=== PATIENT | female | born 1975 ===

== ENCOUNTER 2022-04-16 10:09 | Outpatient (REF) | payer MEDICARE, MEDICAID, SELFPAY ==
[2022-04-16 11:42] LABS: MANUAL DIFF FLAG NO
[2022-04-16 12:01] LABS: Basophils Percent Auto 0.5 % (0-2); Eosinophils Absolute Auto 0.2 X10*3/uL (0.0-0.4); Eosinophils Percent Auto 2.4 % (0-4); Hematocrit 37.6 % (37.0-47.0); Hemoglobin 12.8 g/dl (12.0-16.0); Imm Gran Abs Auto 0.02 X10*3/uL (0.00-0.03); Imm Gran Pct Auto 0.2 % (0.0-0.4); Lymphocytes Absolute Auto 2.7 X10*3/uL (1.2-4.9); Lymphocytes Percent Auto 32.9 % (20-40); Mean Corpuscular Hemoglobin 29.8 pg (27.0-33.0); Mean Corpuscular Volume 87.4 fL (80.0-98.0); Mean Platelet Volume 9.2 fL (9.4-12.3); Monocytes Absolute Auto 0.6 X10*3/uL (0.1-1.2); Monocytes Percent Auto 6.7 % (2-11); Neutrophils Absolute Auto 4.7 x10*3/uL (2.0-8.3); Neutrophils Percent Auto 57.3 % (45-73); Platelet Count 328 X10*3/uL (160-400); Red Cell Distribution Width 13.1 % (11.0-16.0); White Blood Count 8.3 X10*3/uL (4.8-10.8)
[2022-04-16 12:16] LABS: D Dimer High Sensitivity < 150 NG/ML
[2022-04-16 12:34] LABS: Anion Gap 14 (12-20); Blood Urea Nitrogen 10 mg/dL (9-16); Calcium 9.5 mg/dL (8.4-10.2); Carbon Dioxide 22 mmol/L (22-29); Chloride 106 mmol/L (96-108); Estimated Glomerular Filt Rate > 60; Glucose Random 99 mg/dL (60-115); Potassium 4.1 mmol/L (3.3-5.1); Sodium 138 mmol/L (135-145)
[2022-04-16 12:36] LABS: Erythrocyte Sedimentation Rate 25 MM/HR (0-20)
[2022-04-18 06:26] LABS: Immunoglobulin E 63 kU/L (<OR=114)
[2022-04-18 17:17] LABS: Cyclic Citrullinated Peptide <16 UNITS
[2022-04-19 08:37] LABS: Anti Nuclear Antibody Screen NEGATIVE (NEGATIVE)
== END 2022-04-16 10:10 | disposition home or self-care (01) ==
LOC: HO.LAB 10:09
PROVIDERS: PCP Internal Medicine; Visit Provider Hospitalist
DX: Z23 Encounter for immunization (principal); G47.33 Obstructive sleep apnea (adult) (pediatric); R07.81 Pleurodynia; J45.909 Unspecified asthma, uncomplicated; R91.1 Solitary pulmonary nodule
CPT/HCPCS: 36415; 80048; 82785; 85025; 85379; 85652; 86038; 86039; 86200; 90471; 90686; 99202

== ENCOUNTER → 2022-05-01 08:52 | Outpatient (REF) | payer MEDICARE, MEDICAID, SELFPAY | LOC: HO.SL 08:52 | PROVIDERS: PCP Internal Medicine; Visit Provider Hospitalist | DX: G47.33 Obstructive sleep apnea (adult) (pediatric) (principal) | CPT/HCPCS: 95806 ==

== ENCOUNTER 2022-06-11 09:50 | Outpatient (REF) | payer MEDICARE, MEDICAID, SELFPAY ==
--- NOTE | 2022-06-11 | PFT_ITS ---
FLOWS: FEV1 of 88% of predicted at 2.10 L. FVC 85% of predicted at 2.52 L. FEV1 to FVC ratio of 0.83. No bronchodilator response except in small to medium airways. LUNG VOLUMES: Total lung capacity 83% of predicted at 3.59 L. Residual volume 69% of predicted at 1.04 L. Slow vital capacity 90% of predicted at 2.55 L. Expiratory reserve volume 34% of predicted at 0.30 L. Diffusion capacity is normal. IMPRESSION: No obstructive or restrictive ventilatory defect. No bronchodilator response except in small to medium airways. Decreased expiratory reserve volume suggests extrathoracic restriction likely secondary to abdominal obesity. Mauricio Jose MD AP/MODL / [id number]
== END 2022-06-11 09:51 | disposition home or self-care (01) ==
LOC: HO.RESP 09:50
PROVIDERS: PCP Internal Medicine; Visit Provider Hospitalist
DX: R91.1 Solitary pulmonary nodule (principal); J45.901 Unspecified asthma with (acute) exacerbation; G47.33 Obstructive sleep apnea (adult) (pediatric)
CPT/HCPCS: 94060; 94727; 94729; 99212

== ENCOUNTER 2022-09-04 07:28 | Outpatient (REF) | payer MEDICARE, MEDICAID, SELFPAY ==
--- NOTE | ~2022-09-04 | CT_ITS ---
EXAMINATION: CT CHEST WITHOUT CONTRAST CLINICAL INFORMATION: Solitary pulmonary nodule COMPARISON: None TECHNIQUE: Multidetector volumetric CT imaging of the chest was done. Axial MIP volume rendering provided. Sagittal and coronal reformatted images were obtained. This CT examination was performed using dose optimization techniques as appropriate, variously including the following: *Automated exposure control *Adjustment of mA and/or kV according to patient size (this includes techniques or standardized protocols for targeted exams where dose is matched to indication/reason for exam; i.e. extremities or head) *Use of iterative reconstruction technique DLP: 174 mGy-cm FINDINGS: LUNGS: There is a 2 mm calcified right lower lobe nodule axial image 261 series 7. Minimal scarring or subsegmental atelectasis in the medial segment of the right middle lobe. The lungs are otherwise clear. No endobronchial or endotracheal lesion. MEDIASTINUM: The mediastinum is normal. CORONARY ARTERY CALCIFICATION: None visualized on this study. PLEURA: There is no pleural effusion. No pleural mass or thickening. AXILLA: No lymphadenopathy. UPPER ABDOMEN: Unremarkable. OSSEOUS STRUCTURES: Degenerative changes of the spine. CT/CT chest wo IV con IMPRESSION: Solitary 2 mm calcified right lower lobe nodule probably representing a calcified granuloma. Otherwise unremarkable exam. No imaging follow-up recommended. Fleischner guidelines were followed.
== END 2022-09-04 07:29 | disposition home or self-care (01) ==
LOC: HO.CT 07:28
PROVIDERS: PCP Internal Medicine; Visit Provider Hospitalist
DX: R91.1 Solitary pulmonary nodule (principal)
CPT/HCPCS: 71250

== ENCOUNTER → 2022-09-13 14:21 | Outpatient (BNVA) | payer MEDICARE, MEDICAID, SELFPAY | PROVIDERS: PCP Internal Medicine; Visit Provider Hospitalist | DX: R91.1 Solitary pulmonary nodule (principal); J45.909 Unspecified asthma, uncomplicated; G47.33 Obstructive sleep apnea (adult) (pediatric) | CPT/HCPCS: 99212 ==

== ENCOUNTER 2023-04-29 10:25 | Outpatient (AMB) | payer MEDICARE, MEDICAID, SELFPAY ==
[2023-04-29 10:25] VITALS: BMI 37.6
--- NOTE | 2023-04-29 10:25 | A.OFFVIS_ITS ---
Intake Vital Signs 04/29/23 10:25 Height 4 ft 11 in Weight 186 lb BMI 37.6 Intake Visit Reasons: Pulm Nodule Allergies No Known Allergies Allergy (Verified 04/29/23 10:26) HPI HPI Comments History of Present Illness Details The patient is a 47-year-old woman with a known history of asthma in addition to pulmonary nodules. She has been developing chest discomfort and therefore she was referred to Cardiology. She did undergo a cardiac CT angiogram which demonstrated a small left upper lobe pulmonary nodule. The patient does have a history of pulmonary nodules noted previously on a report from a CT scan from [facility]. However, that nodule was ground-glass in nature. We did review the CT scan that she had recently at [facility] however explained to the patient that is very limited based on the fact that it is primarily focusing on the heart and is missing good amount the lung windows. Patient still describing the chest discomfort. The chest discomfort to some degree is reproducible. It is left-sided and is moderate severity. There is a pleuritic component to it. Also noted on the CT scan that she had recently was a dilated pulmonary trunk suggesting the possibility of pulmonary hypertension. The patient states that she has been having a difficult time sleeping. She does have significant snoring. Her [place] score is elevated 12/24. The patient did have a sleep study in the past but was limited by cast insomnia. Based on the patient's cardiovascular risks and current symptoms of daytime drowsiness and headaches the patient will undergo a home sleep study. The patient will also undergo blood work including a D-dimer. The patient understands if her D-dimer is elevated she require a urgent CTA. 06/11/2022 the patient is here for [facility] follow-up visit. She is having difficulty breathing. She is having increased cough. Chest congestion. She denies any fevers or chills. She did have a function studies this morning. They appear to show small airways disease consistent with her asthma. On examination she does have significant wheezing. She responded very well to the nebulized therapy with albuterol. It definitely helped her cough. She likely has cough variant asthma. The patient does need a nebulizer for home. In the meantime she continues to have daytime drowsiness. She does have severe headaches in the morning. She also has significant snoring and elevated cholesterol. She also had a mix sleep study which she was awake most of the time during the study. It is likely that her sleep apnea is much worse than stated on her sleep study. Therefore although she has mild sleep apnea on her sleep study I do believe is more close to [id number]. The patient does need to start CPAP therapy at this time. Will go ahead and treated for an asthma exacerbation as well. She did a pulmonary nodules noted on a CT scan a few months ago. Will go ahead and monitor her symptoms and monitor her response to CPAP. When she returns will talk about repeating the CT scan to address her pulmonary nodules. 09/13/2022 the patient is [facility] Overall the patient has been doing very well from a respiratory status. She has been using her inhalers. With good response. She has not had to use her rescue inhaler. The patient also had a CT scan of the chest that we personally reviewed demonstrating a small calcified pulmonary nodule measuring 2 mm in size consistent with granuloma and therefore she does not need any further CT scans at this time. The rest of the scan was unremarkable. The patient did get her CPAP. She has been struggling with. Initially she was tolerating it and now she gets very anxious when she uses it and she panics and she has not been able to tolerated. Therefore she has been using some time. We did review her sleep study. She only demonstrated mild sleep apnea so therefore she can use try positional therapy at this time. She was aware that if she does not sleep on her back her symptoms do improve. Therefore she is going to continue positional therapy and if she does well did she can always return her CPAP to the [employer]. In addition to this will going to work on her sleep. She is struggling to sleep. She has tried gabapentin and also trazodone without any significant improvement. Sometimes she is up wake all night and she cannot get any sleep. Therefore I will send his Ambien to the pharmacy and she can use as needed. 04/19/2023 patient has a telehealth visit today. Overall she is doing a lot better. Her asthma seems to be better controlled on the Breo inhaler she has not had to use her rescue inhaler often. The skin twice a week. The last time she had chest tightness couple weeks ago she had to use her inhaler once in her movement was significant. The patient also is using the Ambien with good effect. She is sleeping a lot better. She does try did take medication holidays. She has not seen any significant worsening of any of needs a but she has had episodes that are not clear far from regular in nature or medication. Therefore she will monitor closely for any worsening symptoms. If she finds herself with worsening episodes of the needs of the patient. The Ambien call. Otherwise seems to be tolerating it well. She is not having any daytime drowsiness. [place] score is improved down to 6/24. Therefore she does have to use her CPAP right now so long she is doing positional therapy. We also talked about a CT scan again no need for repeating the CT scan at this time. Therefore she will continue with current respiratory therapy and will follow-up sometime in late spring. If the patient has any worsening symptoms prior to this upcoming visit she can always call for an earlier assessment. [facility] Medical History (Updated 04/29/23 @ 10:34 by Da Pardo MD) Vitamin D deficiency Hyperlipidemia Obesity Hematuria Migraines Depression with anxiety Insomnia PLMD (periodic limb movement disorder) (~2018) Personal history of nicotine dependence Pulmonary nodule Asthma Pleuritic chest pain EMILEE (obstructive sleep apnea) Surgical History (Updated 03/14/23 @ 10:55 by Frannie Briscoe PA-C) History of loop electrosurgical excision procedure (LEEP) History of esophagogastroduodenoscopy (EGD) History of colonoscopy Social History (Updated 04/16/22 @ 10:38 by MARIEL Lau) Patient Tobacco Use Status: Former Tobacco user Tobacco use type: Cigarette Years Smoked: 10 Years Review of Systems Const Denies daytime sleepiness, Reports difficulty sleeping and Denies headache(s) Eyes Denies change in vision and Denies itchy eyes ENT Denies change in voice, Denies headache(s) and Denies lip swelling Card Reports chest pain and Reports dyspnea on exertion Resp Reports chest congestion, Reports cough, Reports dyspnea on exertion and Reports wheezing GI Reports no additional complaints Musc Reports no additional complaints Skin/Breast Denies rash Neuro Denies headache(s) and Reports restless legs Edmar/Lymph Denies easy bleeding and Denies easy bruising Aller/Immun Denies urticaria, Denies itchy eyes, Denies lip swelling and Reports wheezing Physical Exam Vital Signs: BMI result Body Mass Index 37.6 Const General: comfortable Orientation/consciousness: patient oriented x3 Resp Effort & Inspection: normal respiratory effort and able to speak in complete sentences Neuro General: patient oriented x3 Assessment & Plan Assessment & Plan (1) EMILEE (obstructive sleep apnea): Code(s): G47.33 - Obstructive sleep apnea (adult) (pediatric) (2) Asthma: Code(s): J45.909 - Unspecified asthma, uncomplicated Qualifiers: Asthma complication type: uncomplicated Asthma persistence: persistent Asthma severity: moderate Qualified Code(s): J45.40 - Moderate persistent asthma, uncomplicated (3) Pulmonary nodule: Comment: calcified granuloma Code(s): R91.1 - Solitary pulmonary nodule Plan continue Ambien for sleep, monitor for anmesia no APAP. continue positional therapy. nebulizer as needed Breo in AM LESLYE as needed F/U 3-4 months Medications: Refilled zolpidem 10 mg PO BEDTIME 30 days PRN 30 tabs 3RF sleep Telehealth Telehealth Location of provider rendering services: practice address Location of patient: address on file Patient Identification confirmed using: Name, : Yes Telehealth method: voice only Patient verbally consented to treatment: Yes Patient verbally consented to billing insurance company: Yes Patient informed of any privacy concerns related to visit: Yes Coding Level of Care Code Tele Est Pt Level 4 (38431) Diagnoses EMILEE (obstructive sleep apnea) G47.33 Moderate persistent asthma without complication J45.40 Asthma complication type: uncomplicated Asthma persistence: persistent Asthma severity: moderate Pulmonary nodule R91.1 Time Spent (min) 14
== END 2023-04-29 11:03 | disposition home or self-care (01) ==
LOC: HO.HPS 10:25
PROVIDERS: PCP Internal Medicine; Visit Provider Hospitalist
DX: G47.33 Obstructive sleep apnea (adult) (pediatric) (principal); J45.40 Moderate persistent asthma, uncomplicated; R91.1 Solitary pulmonary nodule
CPT/HCPCS: 99442

== ENCOUNTER → 2023-04-29 10:25 | Outpatient (BNVA) | payer MEDICARE, MEDICAID, SELFPAY | PROVIDERS: PCP Internal Medicine; Visit Provider Hospitalist | DX: J44.9 Chronic obstructive pulmonary disease, unspecified (principal) ==

== ENCOUNTER 2023-12-29 13:11 | Outpatient (AMB) | payer MEDICARE, MEDICAID, SELFPAY ==
[2023-12-29 13:18] VITALS: PULSE 88; O2SAT 97; BMI 38.4
--- NOTE | 2023-12-29 13:18 | A.OFFVIS_ITS ---
Vital Signs 12/29/23 13:18 Height 4 ft 11 in Weight 190 lb BMI 38.4 Pulse 88 Pulse Source Pulse Oximeter Pulse Oximetry (%) 97 Oxygen Delivery Method Room Air Intake Visit Reasons: Pulmonary Nodules Data Management Engineer Required: No Allergies No Known Allergies Allergy (Verified 12/29/23 13:21) HPI Comments Details: The patient is a 48-year-old woman with a known history of asthma in addition to pulmonary nodules. She has been developing chest discomfort and therefore she was referred to Cardiology. She did undergo a cardiac CT angiogram which demonstrated a small left upper lobe pulmonary nodule. The patient does have a history of pulmonary nodules noted previously on a report from a CT scan from [facility]. However, that nodule was ground-glass in nature. We did review the CT scan that she had recently at [facility] however explained to the patient that is very limited based on the fact that it is primarily focusing on the heart and is missing good amount the lung windows. Patient still describing the chest discomfort. The chest discomfort to some degree is reproducible. It is left-sided and is moderate severity. There is a pleuritic component to it. Also noted on the CT scan that she had recently was a dilated pulmonary trunk suggesting the possibility of pulmonary hypertension. The patient states that she has been having a difficult time sleeping. She does have significant snoring. Her Griffin score is elevated 12/24. The patient did have a sleep study in the past but was limited by cast insomnia. Based on the patient's cardiovascular risks and current symptoms of daytime drowsiness and headaches the patient will undergo a home sleep study. The patient will also undergo blood work including a D-dimer. The patient understands if her D-dimer is elevated she require a urgent CTA. 06/11/2022 the patient is here for pulmonary follow-up visit. She is having difficulty breathing. She is having increased cough. Chest congestion. She denies any fevers or chills. She did have a function studies this morning. They appear to show small airways disease consistent with her asthma. On examination she does have significant wheezing. She responded very well to the nebulized therapy with albuterol. It definitely helped her cough. She likely has cough variant asthma. The patient does need a nebulizer for home. In the meantime she continues to have daytime drowsiness. She does have severe headaches in the morning. She also has significant snoring and elevated cholesterol. She also had a mix sleep study which she was awake most of the time during the study. It is likely that her sleep apnea is much worse than stated on her sleep study. Therefore although she has mild sleep apnea on her sleep study I do believe is more close to [id number]. The patient does need to start CPAP therapy at this time. Will go ahead and treated for an asthma exacerbation as well. She did a pulmonary nodules noted on a CT scan a few months ago. Will go ahead and monitor her symptoms and monitor her response to CPAP. When she returns will talk about repeating the CT scan to address her pulmonary nodules. 09/13/2022 the patient is here for a pulmonary follow-up visit. Overall the patient has been doing very well from a respiratory status. She has been using her inhalers. With good response. She has not had to use her rescue inhaler. The patient also had a CT scan of the chest that we personally reviewed demonstrating a small calcified pulmonary nodule measuring 2 mm in size consistent with granuloma and therefore she does not need any further CT scans at this time. The rest of the scan was unremarkable. The patient did get her CPAP. She has been struggling with. Initially she was tolerating it and now she gets very anxious when she uses it and she panics and she has not been able to tolerated. Therefore she has been using some time. We did review her sleep study. She only demonstrated mild sleep apnea so therefore she can use try positional therapy at this time. She was aware that if she does not sleep on her back her symptoms do improve. Therefore she is going to continue positional therapy and if she does well did she can always return her CPAP to the [employer]. In addition to this will going to work on her sleep. She is struggling to sleep. She has tried gabapentin and also trazodone without any significant improvement. Sometimes she is up wake all night and she cannot get any sleep. Therefore I will send his Ambien to the pharmacy and she can use as needed. 04/19/2023 patient has a telehealth visit today. Overall she is doing a lot better. Her asthma seems to be better controlled on the Breo inhaler she has not had to use her rescue inhaler often. The skin twice a week. The last time she had chest tightness couple weeks ago she had to use her inhaler once in her movement was significant. The patient also is using the Ambien with good effect. She is sleeping a lot better. She does try did take medication holidays. She has not seen any significant worsening of any of needs a but she has had episodes that are not clear far from regular in nature or medication. Therefore she will monitor closely for any worsening symptoms. If she finds herself with worsening episodes of the needs of the patient. The Ambien call. Otherwise seems to be tolerating it well. She is not having any daytime drowsiness. Griffin score is improved down to /. Therefore she does have to use her CPAP right now so long she is doing positional therapy. We also talked about a CT scan again no need for repeating the CT scan at this time. Therefore she will continue with current respiratory therapy and will follow-up sometime in late spring. If the patient has any worsening symptoms prior to this upcoming visit she can always call for an earlier assessment. 12/29/2023 the patient is here for pulmonary follow-up visit. Overall she has been doing well from a respiratory status. She has been using the Breo inhaler has been affecting beneficial. She does rinse her mouth well after using it. She has been complaining of a cough. Also some hoarseness. The cough tends to be worse when she lies flat. She also has noticed some constant clearing of her throat. The patient also also been concerned about her weight gain. She has been having hard time losing weight. She is getting discouraged and somewhat depressed 4. she is trying to get motivated to go exercise and also make some dietary changes. I do believe the dietitian be helpful in her lifestyle changes. I will go ahead and refer her at this time. I do believe that weight loss will also help her breathing. In addition to that her respiratory exam is reassuring although she does have significant nasal congestion and postnasal drip. Likely resulting in her symptoms. We did talk about nasal rinsing. I did provide her with the Neti bottle and she will get some distilled water for. She can use packets. She can use it at nighttime and then start fluticasone nasal spray during the morning. She can use it for the next 4 weeks and then if she is doing okay she can stop the nasal spray and continue the needed bottle sinus rinse as tolerated. Again, we talked about only using distilled water for. Also the bottom be discarded after few months. No recent imaging to review. Her last CT scan was reassuring. The patient will follow-up in 6-8 months. If she develops any worsening symptoms prior to that she will come for further evaluation. [facility] Medical History (Updated 12/29/23 @ 21:51 by Da Pardo MD) Chronic cough Chronic allergic rhinitis Vitamin D deficiency Hyperlipidemia Obesity Hematuria Migraines Depression with anxiety Insomnia PLMD (periodic limb movement disorder) (~2018) Personal history of nicotine dependence Pulmonary nodule Asthma Pleuritic chest pain EMILEE (obstructive sleep apnea) Surgical History (Updated 03/14/23 @ 10:55 by Frannie Briscoe PA-C) History of loop electrosurgical excision procedure (LEEP) History of esophagogastroduodenoscopy (EGD) History of colonoscopy Social History (Updated 04/16/22 @ 10:38 by Grace Howe Raulito) Patient Tobacco Use Status: Former Tobacco user Tobacco use type: Cigarette Years Smoked: 10 Years Review of Systems Const Denies daytime sleepiness, Reports difficulty sleeping and Denies headache(s) Eyes Denies change in vision and Denies itchy eyes ENT Denies change in voice, Denies headache(s) and Denies lip swelling Card Denies chest pain and Reports dyspnea on exertion Resp Reports chest congestion, Reports cough, Reports dyspnea on exertion and Reports wheezing GI Reports no additional complaints Musc Reports no additional complaints Skin/Breast Denies rash Neuro Denies headache(s) and Reports restless legs Edmar/Lymph Denies easy bleeding and Denies easy bruising Aller/Immun Denies urticaria, Denies itchy eyes, Denies lip swelling and Reports wheezing Physical Exam Vital Signs: Last Vital Signs Pulse 88 12/29/23 13:18 Pulse Ox 97 12/29/23 13:18 Oxygen Delivery Method Room Air 12/29/23 13:18 BMI result Body Mass Index 38.4 Const General: comfortable HEENT Head: Yes normal to inspection Eyes General: appearance normal, both eyes and all related structures Neck Neck: Yes supple Chest Chest palpation & inspection: normal inspection of the chest and tenderness costal cartilage (left) Resp Effort & Inspection: normal respiratory effort Auscultation: rhonchi, wheezes and diminished lung sounds Cardio Rate: regular rate Rhythm: regular rhythm Heart sounds: S1 normal heart sound present and S2 normal heart sound present GI Auscultation: normal bowel sounds General: Yes no CVA tenderness Back/Spine/Pelvis Back: no CVA tenderness Skin General skin exam: no rashes or lesions noted Extrem General: Yes no clubbing, cyanosis or edema Assessment & Plan Assessment & Plan (1) EMILEE (obstructive sleep apnea): Code(s): G47.33 - Obstructive sleep apnea (adult) (pediatric) Category: Medical (2) Asthma: Code(s): J45.909 - Unspecified asthma, uncomplicated Category: Medical Qualifiers: Asthma complication type: uncomplicated Asthma persistence: persistent Asthma severity: moderate Qualified Code(s): J45.40 - Moderate persistent asthma, uncomplicated (3) Pulmonary nodule: Comment: calcified granuloma Code(s): R91.1 - Solitary pulmonary nodule Category: Medical (4) Chronic allergic rhinitis: Code(s): J30.9 - Allergic rhinitis, unspecified Category: Medical (5) Chronic cough: Code(s): R05.3 - Chronic cough Category: Medical Plan continue Ambien for sleep, monitor for anmesia no APAP. continue positional therapy. nebulizer as needed Breo in AM LESLYE as needed neti bottle fluticasone nasal spray Weight management: Pourer referral F/U 8 months Orders: Referrals Pourer Nutrition Referral E66.9 - Obesity, unspecified Coding Level of Care Code Est Pt Level 4 (17760) Diagnoses EMILEE (obstructive sleep apnea) G47.33 Moderate persistent asthma without complication J45.40 Asthma complication type: uncomplicated Asthma persistence: persistent Asthma severity: moderate Pulmonary nodule R91.1 Chronic allergic rhinitis J30.9 Chronic cough R05.3 Time Spent (min) 16
== END 2023-12-29 13:43 | disposition home or self-care (01) ==
PROVIDERS: PCP Internal Medicine; Visit Provider Hospitalist
DX: G47.33 Obstructive sleep apnea (adult) (pediatric) (principal); J45.40 Moderate persistent asthma, uncomplicated; R91.1 Solitary pulmonary nodule; J30.9 Allergic rhinitis, unspecified; R05.3 Chronic cough
CPT/HCPCS: 99214

== ENCOUNTER → 2023-12-29 13:11 | Outpatient (BNVA) | payer MEDICARE, MEDICAID, SELFPAY | PROVIDERS: PCP Internal Medicine; Visit Provider Hospitalist | DX: J45.40 Moderate persistent asthma, uncomplicated (principal); J30.9 Allergic rhinitis, unspecified; R05.3 Chronic cough; R91.1 Solitary pulmonary nodule; G47.33 Obstructive sleep apnea (adult) (pediatric) | CPT/HCPCS: 99212 ==

== ENCOUNTER 2024-01-28 08:56 | Outpatient (AMB) | payer MEDICARE, MEDICAID, SELFPAY ==
--- NOTE | 2024-01-28 09:01 | MHC.AMNUTRGE ---
VS Expanded 01/28/24 09:05 02/03/24 10:42 Height 4 ft 11 in 4 ft 11 in Weight 193 lb 5.526 oz 193 lb BMI 39.0 39.0 Intake Visit Reasons: OBESITY/CONFIRMED Allergies No Known Allergies Allergy (Verified 12/29/23 13:21) Nutrition Presentation Details: Pt presents for MNT for obesity. The Pt was referred by audio visual facilities engineer Dr. Yuir Pardo Food frequency fruits: 0-1/d vex/wk fish: 0-1/wk dairy: 2-3 +/d starches> 25/d beverages: water/milk/juice physical activity: daily life activities BS Monitoring Most Recent Diabetes Results: No Data to Display [facility] Equation Height: 4 ft 11 in Weight: 193 lb Resting Metabolic Rate: 1414.02 Calculated Activity Level: Sedentary Calories Needed to Maintain Weight: 1696.82 Diagnosis Nutrition problem #1: food nutri know defi As related to (etiology) #1: diagnosis As evidenced by (sign/symptom) #1: high BMI (bmi 39.1) [facility], [facility] Medical History (Updated 12/29/23 @ 21:51 by Da Pardo MD) Chronic cough Chronic allergic rhinitis Vitamin D deficiency Hyperlipidemia Obesity Hematuria Migraines Depression with anxiety Insomnia PLMD (periodic limb movement disorder) (~2018) Personal history of nicotine dependence Pulmonary nodule Asthma Pleuritic chest pain EMILEE (obstructive sleep apnea) Surgical History (Updated 03/14/23 @ 10:55 by Frannie Briscoe PA-C) History of loop electrosurgical excision procedure (LEEP) History of esophagogastroduodenoscopy (EGD) History of colonoscopy Social History (Updated 04/16/22 @ 10:38 by MARIEL Lau) Patient Tobacco Use Status: Former Tobacco user Tobacco use type: Cigarette Years Smoked: 10 Years Assessment & Plan Assessment & Plan (1) Obesity: Code(s): E66.9 - Obesity, unspecified Category: Medical Plan: Wt: 88 Kg ( 01/2024 ) Est kcal needs as per MSJ: 1700 (40% carb, 30% protein/fat) Est fluid needs as per 25-30 ml/d: 2600 Est prot per day as per 1 g/kg bw: 88 Recommend fiber intake : 8-10 g per day and gradually increase to 25-28 g per day for women and 35-38 g for men or as tolerated Recommend sodium intake per day : less than 1500 mg less than 2000 mg Educated patient on: ( R = reviewed V = verbalizes understanding N/R = needs review N/A = not applicable Food sources of carbohydrate, adequate serving sizes and its role in various health conditions: R Differences between complex carbohydrates a simple carbohydrates, role of fiber in diet: R V N/R Lean protein sources of foods: R V NR Differences between types of fats and role in diet (mono on saturated fat fatty acids, saturated fatty acids, trans fats): R general low fat Food sources of sodium in salt and healthy modifications for heart health in kidney health: R V R/V Vitamins and minerals: R V N/R Healthy plate method concept: R Physical activity: Benefits a precaution: R V N/R Patient Instructions: Practice mindful eating Reduce total carb to less than 60 g at meal , 3 meals/day Reduce snack to 2 a day consisting of less than 20 g carbs see meal ideas as reference Coding Level of Care Code Nutr Indiv Intake (82100) Diagnoses Obesity E66.9 Time Spent (min) 30
[2024-01-28 09:05] VITALS: BMI 39.0
[2024-02-03 10:42] VITALS: BMI 39.0
== END 2024-01-28 09:51 | disposition home or self-care (01) ==
PROVIDERS: PCP Internal Medicine; Visit Provider Dietitian, Registered
DX: E66.9 Obesity, unspecified (principal)

== ENCOUNTER → 2024-01-28 08:56 | Outpatient (BNVA) | payer MEDICARE, MEDICAID, SELFPAY | PROVIDERS: PCP Internal Medicine; Visit Provider Dietitian, Registered | DX: E66.9 Obesity, unspecified (principal); Z71.3 Dietary counseling and surveillance; Z68.39 Body mass index [BMI] 39.0-39.9, adult | CPT/HCPCS: 97802 ==

== ENCOUNTER 2024-09-29 08:27 | Outpatient (AMB) | payer OTHER, SELFPAY ==
[2024-09-29 08:34] VITALS: BP 112/80; PULSE 80; O2SAT 98; BMI 40.3
--- NOTE | 2024-09-29 08:34 | MHC.OFFVIS ---
Vital Signs 09/29/24 08:34 Height 4 ft 11 in Weight 199 lb 8.293 oz BMI 40.3 BP 112/80 Blood Pressure Location Lt brachial Position Sitting Pulse 80 Pulse Source Pulse Oximeter Pulse Oximetry (%) 98 Oxygen Delivery Method Room Air Intake Visit Reasons: Pulmonary Nodules Allergies No Known Allergies Allergy (Verified 09/29/24 08:36) HPI Comments Details: The patient is a 49-year-old woman with a known history of asthma in addition to pulmonary nodules. She has been developing chest discomfort and therefore she was referred to Cardiology. She did undergo a cardiac CT angiogram which demonstrated a small left upper lobe pulmonary nodule. The patient does have a history of pulmonary nodules noted previously on a report from a CT scan from [facility]. However, that nodule was ground-glass in nature. We did review the CT scan that she had recently at [facility] however explained to the patient that is very limited based on the fact that it is primarily focusing on the heart and is missing good amount the lung windows. Patient still describing the chest discomfort. The chest discomfort to some degree is reproducible. It is left-sided and is moderate severity. There is a pleuritic component to it. Also noted on the CT scan that she had recently was a dilated pulmonary trunk suggesting the possibility of pulmonary hypertension. The patient states that she has been having a difficult time sleeping. She does have significant snoring. Her [place] score is elevated 12/24. The patient did have a sleep study in the past but was limited by cast insomnia. Based on the patient's cardiovascular risks and current symptoms of daytime drowsiness and headaches the patient will undergo a home sleep study. The patient will also undergo blood work including a D-dimer. The patient understands if her D-dimer is elevated she require a urgent CTA. 06/11/2022 the patient is here for pulmonary follow-up visit. She is having difficulty breathing. She is having increased cough. Chest congestion. She denies any fevers or chills. She did have a function studies this morning. They appear to show small airways disease consistent with her asthma. On examination she does have significant wheezing. She responded very well to the nebulized therapy with albuterol. It definitely helped her cough. She likely has cough variant asthma. The patient does need a nebulizer for home. In the meantime she continues to have daytime drowsiness. She does have severe headaches in the morning. She also has significant snoring and elevated cholesterol. She also had a mix sleep study which she was awake most of the time during the study. It is likely that her sleep apnea is much worse than stated on her sleep study. Therefore although she has mild sleep apnea on her sleep study I do believe is more close to [id number]. The patient does need to start CPAP therapy at this time. Will go ahead and treated for an asthma exacerbation as well. She did a pulmonary nodules noted on a CT scan a few months ago. Will go ahead and monitor her symptoms and monitor her response to CPAP. When she returns will talk about repeating the CT scan to address her pulmonary nodules. 09/13/2022 the patient is here for a pulmonary follow-up visit. Overall the patient has been doing very well from a respiratory status. She has been using her inhalers. With good response. She has not had to use her rescue inhaler. The patient also had a CT scan of the chest that we personally reviewed demonstrating a small calcified pulmonary nodule measuring 2 mm in size consistent with granuloma and therefore she does not need any further CT scans at this time. The rest of the scan was unremarkable. The patient did get her CPAP. She has been struggling with. Initially she was tolerating it and now she gets very anxious when she uses it and she panics and she has not been able to tolerated. Therefore she has been using some time. We did review her sleep study. She only demonstrated mild sleep apnea so therefore she can use try positional therapy at this time. She was aware that if she does not sleep on her back her symptoms do improve. Therefore she is going to continue positional therapy and if she does well did she can always return her CPAP to the [facility]. In addition to this will going to work on her sleep. She is struggling to sleep. She has tried gabapentin and also trazodone without any significant improvement. Sometimes she is up wake all night and she cannot get any sleep. Therefore I will send his Ambien to the pharmacy and she can use as needed. 04/19/2023 patient has a telehealth visit today. Overall she is doing a lot better. Her asthma seems to be better controlled on the Breo inhaler she has not had to use her rescue inhaler often. The skin twice a week. The last time she had chest tightness couple weeks ago she had to use her inhaler once in her movement was significant. The patient also is using the Ambien with good effect. She is sleeping a lot better. She does try did take medication holidays. She has not seen any significant worsening of any of needs a but she has had episodes that are not clear far from regular in nature or medication. Therefore she will monitor closely for any worsening symptoms. If she finds herself with worsening episodes of the needs of the patient. The Ambien call. Otherwise seems to be tolerating it well. She is not having any daytime drowsiness. [place] score is improved down to 01/04. Therefore she does have to use her CPAP right now so long she is doing positional therapy. We also talked about a CT scan again no need for repeating the CT scan at this time. Therefore she will continue with current respiratory therapy and will follow-up sometime in late spring. If the patient has any worsening symptoms prior to this upcoming visit she can always call for an earlier assessment. 12/29/2023 the patient is here for pulmonary follow-up visit. Overall she has been doing well from a respiratory status. She has been using the Breo inhaler has been affecting beneficial. She does rinse her mouth well after using it. She has been complaining of a cough. Also some hoarseness. The cough tends to be worse when she lies flat. She also has noticed some constant clearing of her throat. The patient also also been concerned about her weight gain. She has been having hard time losing weight. She is getting discouraged and somewhat depressed 4. she is trying to get motivated to go exercise and also make some dietary changes. I do believe the dietitian be helpful in her lifestyle changes. I will go ahead and refer her at this time. I do believe that weight loss will also help her breathing. In addition to that her respiratory exam is reassuring although she does have significant nasal congestion and postnasal drip. Likely resulting in her symptoms. We did talk about nasal rinsing. I did provide her with the Neti bottle and she will get some distilled water for. She can use packets. She can use it at nighttime and then start fluticasone nasal spray during the morning. She can use it for the next 4 weeks and then if she is doing okay she can stop the nasal spray and continue the needed bottle sinus rinse as tolerated. Again, we talked about only using distilled water for. Also the bottom be discarded after few months. No recent imaging to review. Her last CT scan was reassuring. The patient will follow-up in 6-8 months. If she develops any worsening symptoms prior to that she will come for further evaluation. 09/29/2024 the patient is here for pulmonary follow-up visit. Overall she is doing okay. She does use her respiratory medications with good effect. She does complaint of dyspnea on exertion. Edae-ru-xgxrbxzs severity. Worse when she is going up a flight of stairs. She has had significant amount of weight gain and this is likely contributing. She is also demonstrating some lower extremity edema. She has been noticing that the compression stockings on helping some. Apparently she does consume salt. We talked about the importance of cutting down the salt specially she starting to get significant volume overload status. She has not been using the Ambien regularly. I do believe that she needs a maintenance inhaler at this time. Will switch her over to air supra in order for her to get better airway coverage in an as needed basis. She continues use the Ambien for sleep. This has been affecting beneficial. She does take holidays. Denies any amnesia. Safe for her to continue it but she needs to monitor closely for those side effects. She also continues to sleep on her side. Positional therapy and also sleeping elevated at times to minimize the sleep apnea. She does wake up rested. [facility] Medical History (Updated 12/29/23 @ 21:51 by Da Pardo MD) Chronic cough Chronic allergic rhinitis Vitamin D deficiency Hyperlipidemia Obesity Hematuria Migraines Depression with anxiety Insomnia PLMD (periodic limb movement disorder) (~2018) Personal history of nicotine dependence Pulmonary nodule Asthma Pleuritic chest pain EMILEE (obstructive sleep apnea) Surgical History (Updated 03/14/23 @ 10:55 by Frannie Briscoe PA-C) History of loop electrosurgical excision procedure (LEEP) History of esophagogastroduodenoscopy (EGD) History of colonoscopy Social History Patient Tobacco Use Status: Former Tobacco user Tobacco use type: Cigarette Years Smoked: 10 Years Review of Systems Const Denies daytime sleepiness, Reports difficulty sleeping and Denies headache(s) Eyes Denies change in vision and Denies itchy eyes ENT Denies change in voice, Denies headache(s) and Denies lip swelling Card Denies chest pain and Reports dyspnea on exertion Resp Reports chest congestion, Reports cough, Reports dyspnea on exertion and Reports wheezing GI Reports no additional complaints Musc Reports no additional complaints Skin/Breast Denies rash Neuro Denies headache(s) and Reports restless legs Edmar/Lymph Denies easy bleeding and Denies easy bruising Aller/Immun Denies urticaria, Denies itchy eyes, Denies lip swelling and Reports wheezing Physical Exam Vital Signs: Last Vital Signs Pulse 80 09/29/24 08:34 BP 112/80 09/29/24 08:34 Pulse Ox 98 09/29/24 08:34 Oxygen Delivery Method Room Air 09/29/24 08:34 BMI result Body Mass Index 40.3 Const General: comfortable HEENT Head: Yes normal to inspection Eyes General: appearance normal, both eyes and all related structures Neck Neck: Yes supple Chest Chest palpation & inspection: normal inspection of the chest and tenderness costal cartilage (left) Resp Effort & Inspection: normal respiratory effort Auscultation: rhonchi, wheezes and diminished lung sounds Cardio Rate: regular rate Rhythm: regular rhythm Heart sounds: S1 normal heart sound present and S2 normal heart sound present GI Auscultation: normal bowel sounds General: Yes no CVA tenderness Back/Spine/Pelvis Back: no CVA tenderness Skin General skin exam: no rashes or lesions noted Extrem General: No clubbing, No cyanosis and Yes pedal edema Office Procedures Flu Questionnaire Does the patient have a severe egg allergy?: No Does the patient have severe life threatening allergies?: No Does the patient have a fever or illness today?: No Has the patient ever had Guillain-[place] Syndrome?: No Has the patient ever had any past reaction to a flu shot?: No Immunizations Fluarix Triv 2632-8964 (PF) 45 mcg (15 mcg x 3)/0.5 mL IM syringe Performing Provider: Da Pardo MD Performing Location[place] [facility] Administered by: Gabbi Puckett LPN on 09/29/24 09:03 Dose Route Admin Location Dispensed Lot Number Expiration Date NDC [employer] 0.5 mL IM Left Deltoid 0.5 mL [id number] 01/10/25 09789-241-27 [employer] [facility] V[facility] Given Date VIS Provided VIS Publication Date 09/29/24 Single Vaccine 21 Eligibility Eligibility Date Funding Source Not [facility] Eligible 09/29/24 Private Assessment & Plan Assessment & Plan (1) EMILEE (obstructive sleep apnea): Code(s): G47.33 - Obstructive sleep apnea (adult) (pediatric) Category: Medical (2) Asthma: Code(s): J45.909 - Unspecified asthma, uncomplicated Category: Medical Qualifiers: Asthma complication type: uncomplicated Asthma persistence: persistent Asthma severity: moderate Qualified Code(s): J45.40 - Moderate persistent asthma, uncomplicated (3) Pulmonary nodule: Comment: calcified granuloma Code(s): R91.1 - Solitary pulmonary nodule Category: Medical (4) Chronic allergic rhinitis: Code(s): J30.9 - Allergic rhinitis, unspecified Category: Medical (5) Chronic cough: Code(s): R05.3 - Chronic cough Category: Medical Plan continue Ambien for sleep, monitor for anmesia no APAP. continue positional therapy. nebulizer as needed d/c Breo start Airsupra PRN LESLYE as needed neti bottle fluticasone nasal spray Weight management lasi x 3 days Low Na diet F/U 8 months Orders: Orders Influenza [id number] Immunization Today J45.40 - Moderate persistent asthma, uncomplicated Medications: New albuterol-budesonide 90-80 mcg/actuation (Airsupra) 2 inhalations inhalation BID 30 days PRN 10.7 grams 11RF shortness of breath furosemide (Lasix) 20 mg PO DAILY 3 days 3 tabs 0RF Discontinued Breo Ellipta 200-25 mcg/dose (fluticasone furoate-vilanterol) Discontinued Reason: Doctor's Order 1 inh inhalation DAILY 30 days 60 ea 11RF NS J45.909 - Unspecified asthma, uncomplicated Coding Level of Care Code Est Pt Level 4 (43500) Diagnoses EMILEE (obstructive sleep apnea) G47.33 Moderate persistent asthma without complication J45.40 Asthma complication type: uncomplicated Asthma persistence: persistent Asthma severity: moderate Pulmonary nodule R91.1 Chronic allergic rhinitis J30.9 Chronic cough R05.3 Time Spent (min) 16
--- NOTE | 2024-09-29 09:03 | A.OFFVIS_ITS ---
Vital Signs 09/29/24 08:34 Height 4 ft 11 in Weight 90.5 kg BMI 40.3 BP 112/80 Blood Pressure Location Lt brachial Position Sitting Pulse 80 Pulse Source Pulse Oximeter Pulse Oximetry (%) 98 Oxygen Delivery Method Room Air Intake Visit Reasons: Pulmonary Nodules Allergies No Known Allergies Allergy (Verified 09/29/24 08:36) [facility] Medical History (Updated 12/29/23 @ 21:51 by Da Pardo MD) Chronic cough Chronic allergic rhinitis Vitamin D deficiency Hyperlipidemia Obesity Hematuria Migraines Depression with anxiety Insomnia PLMD (periodic limb movement disorder) (~2018) Personal history of nicotine dependence Pulmonary nodule Asthma Pleuritic chest pain EMILEE (obstructive sleep apnea) Surgical History (Updated 03/14/23 @ 10:55 by Frannie Briscoe PA-C) History of loop electrosurgical excision procedure (LEEP) History of esophagogastroduodenoscopy (EGD) History of colonoscopy Social History Patient Tobacco Use Status: Former Tobacco user Tobacco use type: Cigarette Years Smoked: 10 Years Physical Exam Vital Signs: Last Vital Signs Pulse 80 09/29/24 08:34 BP 112/80 09/29/24 08:34 Pulse Ox 98 09/29/24 08:34 Oxygen Delivery Method Room Air 09/29/24 08:34 BMI result Body Mass Index 40.3 Office Procedures Flu Questionnaire Does the patient have a severe egg allergy?: No Does the patient have severe life threatening allergies?: No Does the patient have a fever or illness today?: No Has the patient ever had Guillain-[place] Syndrome?: No Has the patient ever had any past reaction to a flu shot?: No Immunizations Fluarix Triv [id number] (PF) 45 mcg (15 mcg x 3)/0.5 mL IM syringe Performing Provider: Da Pardo MD Performing Location: [facility] [place] [facility] Administered by: Gabbi Puckett LPN on 09/29/24 09:03 Dose Route Admin Location Dispensed Lot Number Expiration Date NDC [employer] 0.5 mL IM Left Deltoid 0.5 mL [id number] 01/10/25 08613-761-71 [employer] VIS Given Date VIS Provided VIS Publication Date 09/29/24 Single Vaccine 21 Eligibility Eligibility Date Funding Source Not [facility] Eligible 09/29/24 Private Assessment & Plan Assessment & Plan (1) EMILEE (obstructive sleep apnea): Code(s): G47.33 - Obstructive sleep apnea (adult) (pediatric) Category: Medical (2) Asthma: Code(s): J45.909 - Unspecified asthma, uncomplicated Category: Medical Qualifiers: Asthma severity: moderate Asthma persistence: persistent Asthma complication type: uncomplicated Qualified Code(s): J45.40 - Moderate persistent asthma, uncomplicated (3) Pulmonary nodule: Comment: calcified granuloma Code(s): R91.1 - Solitary pulmonary nodule Category: Medical (4) Chronic allergic rhinitis: Code(s): J30.9 - Allergic rhinitis, unspecified Category: Medical (5) Chronic cough: Code(s): R05.3 - Chronic cough Category: Medical Orders: Orders Influenza [id number] Immunization Today J45.40 - Moderate persistent asthma, uncomplicated Medications: New albuterol-budesonide 90-80 mcg/actuation (Airsupra) 2 inhalations inhalation BID PRN 10.7 grams 11RF shortness of breath 30 days furosemide (Lasix) 20 mg PO DAILY 3 tabs 0RF 3 days Fluarix Triv 0125-0200 (PF) (flu vacc [id number] 6mos up(PF)) 0.5 mL IM ONCE 0.5 mL 0RF NS J45.40 - Moderate persistent asthma, uncomplicated Discontinued Breo Ellipta 200-25 mcg/dose (fluticasone furoate-vilanterol) Discontinued Reason: Doctor's Order 1 inh inhalation DAILY 30 days 60 ea 11RF NS J45.909 - Unspecified asthma, uncomplicated Coding Diagnoses EMILEE (obstructive sleep apnea) G47.33 Moderate persistent asthma without complication J45.40 Asthma severity: moderate Asthma persistence: persistent Asthma complication type: uncomplicated Pulmonary nodule R91.1 Chronic allergic rhinitis J30.9 Chronic cough R05.3
--- OUTSIDE RECORDS SUMMARY | 2024-09-29 09:12 | XMS_ITS | Encounter Summary ---
Author Organization [facility] Address [address] [place] [address] Care Team Providers Care Phlebotomist Medical Lab Assistant Name Role Phone Dagoberto Clement MD Primary Care Provider [phone] Encounter Details Date Type Department Care Team (Late st Contact Info) Description 09/01/2024 Telephone Gastroenterology - [address] [place] [id number] Ángel Grimaldo MD [address] [place] [address] Social History Tobacco Use Types Packs/Day Years Used Date Smoking Tobacco: Former Cigarettes Smokeless Tobacco: Never Alcohol Use Standard Drinks/Week Comments No 0 (1 standard drink = 0.6 oz pur e alcohol) Comments Unknown Sex and Gender Information Value Date Recorded Sex Assigned at Not on file Legal Sex Female 9:03 AM EST Gender Identity Not on file Sexual Orientation Not on file documented as of this encounter Ordered Prescriptions Prescription Sig Dispense Quantity Refills Last Filled Start Date End Date sod picosulf-mag ox-citric ac (Clenpiq) 10 mg-3.5 gram- 12 gram/175 mL solutionIndications :Personal history of colon polyps, unspecified Take 175 mL by mouth 2 (two) times a day. 350 mL 09/01/2024 documented in this encounter Progress Notes * Jamie Millan - 09/01/2024 10:14 AM EST Blood thinners: NO Diabetic meds? NO Weight loss meds? NO First Colonoscopy: NO - 2020 BY MAKAYLA Personal hx of polyps? YES Family hx of polyps/crc? NO/NO BMI: 38.4 SPOKE WITH PT SCHEDULED COLON FROM [facility]. LAST COLON 2019 BY VANESSA, [facility]EDUL[facility] COLON 3..2024 [facility] INSTRUCTIONS MAILED AND SENT TO E[facility]. documented in this encounter Plan of Treatment Upcoming Encounters Date Type Department Care Team (Late st Contact Info) Description 09/29/2024 3:00 PM EDT Office Visit Adult Medicine [address] [phone] Rosalinda Hess PA [address] [place] [address] 04/01/2025 4:30 PM EDT Office Visit [address] [phone] Dagoberto Clement MD [address] [place] [address] documented as of this encounter Visit Diagnoses Diagnosis Personal history of colon polyps, unspecified- Primary documented in this encounter Care Teams Phlebotomist Medical Lab Assistant Relationship Specialty Start Date End Date Dagoberto Clement MD [address] [place] [address] PCP - General Internal Medicine 06/05/21 documented as of this encounter
--- OUTSIDE RECORDS SUMMARY | 2024-09-29 09:12 | XMS_ITS | Encounter Summary ---
Author Organization [facility] Address [address] [place] [address] Care Team Providers Care Lead Installer Name Role Phone Dagoberto Clement MD Primary Care Provider [phone] Reason for Visit * Reason Onset Date Comments Special Procedure 09/06/2024 Encounter Details Date Type Department Care Team (Late st Contact Info) Description 09/06/2024 Telephone Gastroenterology - [address] [place] [phone] Ángel Grimaldo MD [address] [place] [address] Special Procedure Social History Tobacco Use Types Packs/Day Years [...] on file documented as of this encounter Progress Notes * Mirta Ruggiero - 09/07/2024 10:44 AM EST PT R/S PVSC 10/18/24 930 [facility]AYLA - MEDICARE/[facility] * Samia Fonseca - 09/06/2024 10:29 AM EST Pt called to r/s procedure, please cb. documented in this encounter Plan of Treatment Upcoming Encounters Date Type Department Care Team (Late st Contact Info) Description 09/29/2024 3:00 PM EDT Office Visit [address] [phone] Rosalinda Hess PA [address] [place] [address] 04/01/2025 4:30 PM EDT Office Visit [address] [phone] Dagoberto Clement MD [address] [place] [address] documented as of this encounter Visit Diagnoses Not on filedocumented in this encounter Care Teams Lead Installer Relationship Specialty Start Date End Date Dagoberto Clement MD [address] [place] [address] PCP - General Internal Medicine 06/05/21 documented as of this encounter
--- OUTSIDE RECORDS SUMMARY | 2024-09-29 09:12 | XMS_ITS | Encounter Summary ---
Author Organization [facility] Address [address] [place] [address] Care Team Providers Care Residential Advisor Name Role Phone Dagoberto Clement MD Primary Care Provider [phone] Encounter Details Date Type Department Care Team (Latest Contact Info) Description 08/16/2024 Lab Requisition [facility] - Main Lab 299 [facility] [place] [phone] Abbi Meehan MD 299 [facility] [address] [place] [phone] Unspecified abnormal cytological findings in specimens from cervix uteri; Encounter for gynecological examination (general) (routine) without abnormal findings Social History Tobacco Use Types Packs/Day Years [...] on file documented as of this encounter Plan of Treatment Upcoming Encounters Date Type Department Care Team (Late st Contact Info) Description 09/29/2024 3:00 PM EDT Office Visit Adult Medicine [address] [phone] Rosalinda Hess PA [address] [place] [address] 04/01/2025 4:30 PM EDT Office Visit Adult Medicine [address] [place] [address] Dagoberto Clement MD [address] [place] [address] documented as of this encounter Procedures Procedure Name Priority Date/Time Associated Diagnosis Comments CHLAMYDIA TRACHOMATIS AND NEISSERIA GONORRHOEAE BY TMA, THINPREP Routine 08/13/2024 12:00 AM EST Unspecified abnormal cytological findings in specimens from cervix uteri PAP SMEAR Routine 08/13/2024 12:00 AM EST Unspecified abnormal cytological findings in specimens from cervix uteri documented in this encounter Results * Chlamydia trachomatis and neisseria gonorrhoeae by tma, thinprep (08/13/2024 12:00 AM EST) N. gonorrhoeae, RNA Probe Negative Negative LAB MICROBIOLOGY METHOD 08/16/2024 12:43 PM EST [facility] Chlamydia, RNA Probe Negative Negative LAB MICROBIOLOGY METHOD 08/16/2024 12:43 PM [facility] Brushing/Spatula Cervix uteri structure / Unknown 08/13/2024 08/16/2024 6:42 AM EST Abbi Meehan MD LAB CYTOLOGY ORDERABLES Final Result [facility] [address] [place] [address], * Pap smear (08/13/2024 12:00 AM EST) Interpretation Negative for intraepithelial lesion or malignancy 08/17/2024 11:13 AM EST [facility] Clinical Information DUB 08/17/2024 11:13 AM EST [facility] Other Findings Shift in elisabet suggestive of bacterial vaginosis 08/17/2024 11:13 AM [facility] Specimen Adequacy Satisfactory for evaluation, endocervical/katz sformation zone component present 08/17/2024 11:13 AM [facility] Pap Methodology Liquid Based Pap Test 08/17/2024 11:13 AM [facility] Disclaimer The Pap test is a screening test which carries an inherent false negative rate. These test results should be correlated with the patient's clinical findings and history. This Pap test was processed using an automated screening system. Technical cytopathology services provided by [facility], at [address] [place] [address] (CLIA # [id number]/Grace Boggs MD, Sales And Service Consultant.) 08/17/2024 11:13 AM [facility] Console Pap Interpretation Reported 08/17/2024 11:13 AM [facility] Brushing/Spatula Cervix uteri structure / Unknown 08/13/2024 08/16/2024 6:42 AM EST us Abbi Meehan MD LAB CYTOLOGY ORDERABLES Final Result [facility] [address] [place] [address], documented in this encounter Visit Diagnoses Diagnosis Unspecified abnormal cytological findings in specimens from cervix uteri Encounter for gynecological examination (general) (routine) without abnormal findings documented in this encounter Care Teams Residential Advisor Relationship Specialty Start Date End Date Dagoberto Clement MD [address] [place] [address] PCP - General Internal Medicine 06/05/21 documented as of this encounter
--- OUTSIDE RECORDS SUMMARY | 2024-09-29 09:12 | XMS_ITS | Clinical Summary ---
Author Organization [facility] 299 [facility] Address [address] [place] [address] Phone Care Team Providers Care Manager Client Name Role Phone Dagoberto Clement MD Primary Care Provider [phone] Allergies No known active allergies Medications atorvastatin (LIPITOR) 20 mg tablet TAKE 1 TABLET BY MOUTH EVERY DAY 05/12/2024 Active pramipexole (MIRAPEX) 0.5 mg tablet TAKE 1 TABLET BY MOUTH EVERY DAY 03/29/2024 Active cholecalciferol (VITAMIN D-3) 50 mcg (2,000 unit) capsule TAKE 1 CAPSULE BY MOUTH EVERY DAY 03/23/2024 Active blood-glucose meter kit Active zolpidem (AMBIEN) 10 mg tablet Take by mouth at bedtime as needed. Active albuterol HFA (Ventolin HFA) 90 mcg/actuation inhaler Inhale 2 Puffs into the lungs every 6 hours as needed for Cough or Wheezing. 12/03/2021 Active fluticasone propionate (FLONASE) 50 mcg/actuation nasal spray 2 Sprays by Nasal route daily. 11/12/2021 Active hydrOXYzine HCL (ATARAX) 50 mg tablet TAKE 1 TABLET BY MOUTH EVERY 8 HOURS NEEDED FOR ANXIETY 270 tablet 1 07/02/2024 Active FLUoxetine (PROzac) 20 mg capsule Take 1 capsule (20 mg total) by mouth. Active traZODone (DESYREL) 50 mg tablet Take 1 tablet (50 mg total) by mouth. Active sod picosulf-mag ox-citric ac (Clenpiq) 10 mg-3.5 gram- 12 gram/175 mL solutionIndicati ons:Personal history of colon polyps, unspecified Take 175 mL by mouth 2 (two) times a day. 350 mL 09/01/2024 Active Active Problems Problem Noted Date Diagnosed Date Obesity 06/17/2024 Intermittent asthma 06/17/2024 GERD (gastroesophageal reflux disease) 4 Overview (06/17/2024): follows with Gastroenterology at [facility] EGD 2014, 09/2017 normal colonoscopy and EGD with no H pylori, no metaplasia and no evidence of lymphocytic or collagenous colitis Anxiety and depression 06/17/2024 Gross hematuria 08/16/2019 Overview (06/17/2024): Follows with urology, cytology as well as cystoscopy and CT urogram pending Vitamin D deficiency 07/28/2019 Mixed hypercholesterolemia and hypertriglyceride ag 01/28/2018 Complicated migraine 11/12/2017 Overview (06/17/2024): H/o facial numbness with migraine. Hospitalized [facility] 10/2017 MRI negative. Follows with [facility] neurology has previously trialed Depakote, gabapentin, Imitrex, ibuprofen and Zomig Cervical radiculopathy at C5 10/20/2017 Overview (06/17/2024): C4-C5 xray 09/2017 with mild DJD PLMD (periodic limb movement disorder) 8 Overview (06/17/2024): By 2017 diagnostic polysomnogram. Insomnia 07/21/2017 Overview (06/17/2024): 08/15/2017 Diagnostic Sleep Study did not reveal sleep apnea. Atypical chest pain 02/10/2017 Overview (06/17/2024): Normal exercise stress test 02/10/2017, normal nuclear stress test 11/2020 Marijuana abuse 09/05/2015 Fatty liver disease, nonalcoholic 11/22/2014 Unspecified abnormal cytolog ical findings in specimens from cervix uteri 08/25/2014 Overview (06/17/2024): LEEP Encounters Date Type Department Care Team Description 09/06/2024 Telephone Gastroenterology - [address] [phone] Ángel Grimaldo MD Special Procedure 09/01/2024 Telephone Gastroenterology - [address] [phone] Ángel Grimaldo MD 08/25/2024 Telephone Gastroenterology - [address] [phone] Girish Arias MD 08/24/2024 Telephone Adult Medicine [address] [phone] Dagoberto Clement MD 08/16/2024 Lab Requisition [facility] Main Lab [address] [place] [phone] Abbi Meehan MD Unspecified abnormal cytological findings in specimens from cervix uteri; Encounter for gynecological examination (general) (routine) without abnormal findings 08/13/2024 Lab Requisition [facility] Lab [address] [place] [phone] Abbi Meehan MD Abnormal uterine and vaginal bleeding, unspecified from Last 3 Months Immunizations Name Administration Dates Next Due Hepatitis B (Qbzwlnd-L-Iizht , Recombivax HB-Adult) 19yo and older 05/16/2015,12/28/2014,11/24/2014 Influenza Quadravalent, MDCK , 0.5ml, preservative free (Flucelvax) 6mo and older 04/19/2020 Influenza Quadravalent, MDCK , 0.5ml, with preservative (Flucelvax) 6mo and older 06/24/2017 Influenza trivalent, 0.5mL, preservative free (Fluarix; FluLaval; Fluzone) ages 6mo and older (Afluria) 3 years and older 06/21/2016,06/02/2015,05/24/2014 MMR, measles mumps and rubel la Live (Priorix; M-M-R II) 12mo and older 11/24/2014 PPD Test 11/01/2015,01/20/2015,11/22/2014 Pfizer SARS-CoV-2 COVID-19, mRNA, LNP-S, preservative free 10/18/2020,09/27/2020 Pneumococcal polysaccharide 23 valent (Pneumovax 23) 2yo and older 10/20/2017 Tdap Tetanus diptheria acell ular pertussis (Boostrix; Adacel) 7yo and older 04/06/2012 Surgical History Surgery Date Site/Laterality Comments TUBAL LIGATION PROCEDURE: HISTORICAL TUBAL LIGATION OVARIAN CYST REMOVAL 3.8.11 Right PROCEDURE: NC OVARIAN CYSTECTOMY UNI/BI OTHER SURGICAL HISTORY PROCEDURE: COLONOSCOPY FLEX-PROX SPLEN FLEX; W/STENT PLCMT; COMMENT: Dr. Glover; biopsy of polyp Medical History Medical History Date Comments Historical Medical DX 08/25/2014 DX:Abnorma l Pap smear; COMMENT: [facility] 1996 Fatty liver disease, nonalcoholic 11/22/2014 DX:Fatty liver disease, nonalcoholic Obesity DX:Obesity Intermittent asthma DX:Intermitt ent asthma Anxiety and depression DX:Anxiet y and depression Atypical chest pain 02/10/2017 DX:Atypical chest pain; COMMENT: Normal exercise stress test 02/10/2017 Marijuana abuse 09/05/2015 DX:Marijuana abu se Insomnia 07/21/2017 DX:Insomnia PLMD (periodic limb movement disorder) 08/26/2017 DX:PLMD (periodic limb movem ent disorder); COMMENT: By 2018 diagnostic polysomnogram. GERD (gastroesophageal reflu x disease) DX:GERD (gastroesophageal re flux disease); COMMENT: follows with Gastroenterology at [facility] EGD 09/2017 normal colonoscopy and EGD with no H pylori, no metaplasia and no evidence of lymphocytic or collagenous colitis Cervical radiculopathy at C5 10/20/2017 DX: Cervical radiculopathy at C5; COMMENT: C4-C5 xray 09/2017 with mild DJD Complicated migraine 11/12/2017 DX:Complica christal migraine; COMMENT: H/o facial numbness with migraine. Hospitalized [facility] 10/2017 MRI negative. Mixed hypercholesterolemia a nd hypertriglyceridemia 01/28/2018 DX:Mixed hypercholesterolemi a and hypertriglyceridemia Family History Medical History Relation Name Comments Diabetes Father Hyperlipidemia Father Hypertension Father Heart attack Maternal Grandfather in 60's Hypertension Mother Uterine cancer Mother mets to abdom inal wall Prostate cancer Paternal Grandfather Colon cancer Neg Hx Ovarian cancer Neg Hx Stroke Neg Hx Relation Name Status Comments Brother Alive 1979; Joaquín; he althy Daughter Alive 2009; Shannon; asthma Father Alive htn, dm, hyperc holesterolemia Maternal Grandfather Alive HTN, hy perchol, MD with bypass Mother Alive htn, uterine CA Paternal Grandfather CA Pros carr[place] Paternal Grandmother asthma Sister Alive 1977; Eleni; healthy Son 1 Alive 1993; [place]; ADHD Son 2 Alive 1999; Terry; h ealthy Social History Tobacco Use Types Packs/Day Years Used Date Smoking Tobacco: Former Cigarettes Smokeless Tobacco: Never Alcohol Use Standard Drinks/Week Comments No 0 (1 standard drink = 0.6 oz pur e alcohol) Comments Unknown Sex and Gender Information Value Date Recorded Sex Assigned at Not on file Legal Sex Female 9:03 AM EST Gender Identity Not on file Sexual Orientation Not on file Obstetrics History Last Filed Vital Signs Vital Sign Reading Time Taken Comments Blood Pressure 107/75 03/29/2024 10:39 AM EDT Pulse 85 03/29/2024 10:39 AM EDT Temperature - - Respiratory Rate - - Oxygen Saturation - - Inhaled Oxygen Concentration - - Weight 87.1 kg (192 lb) 02/04/2024 1:29 PM EDT Height 149.9 cm (4' 11 ) 02/04/2024 1:29 PM EDT Body Mass Index 38.78 02/04/2024 1:29 PM EDT Plan of Treatment Upcoming Encounters Date Type Department Care Team (Late st Contact Info) Description 09/29/2024 3:00 PM EDT Office Visit Adult Medicine [address] [phone] Rosalinda Hess PA [address] [place] [address] 04/01/2025 4:30 PM EDT Office Visit Adult Medicine [address] [phone] Dagoberto Clement MD [address] [place] [address] Health Maintenance Due Date Last Done Comments Hepatitis A Vaccines (1 of 2 - Risk 2-dose series) 1994 Pneumococcal Vaccine: Pediatrics (0 to 5 Years) and At-Risk Patients (6 to 64 Years) (2 of 2 - PCV) 10/20/2018 10/20/2017 Breast Cancer Screening 08/01/2020 08/01/2018, 07/28 DTaP,Tdap,and Td Vaccines (2 - Td or Tdap) 04/06/2022 04/06/2012 Colorectal Cancer Screening: Colonoscopy 06/16/2022 Depression Screening 06/16/2022 HIV Screening 06/16/2022 Medicare Annual Wellness Visit 06/16/2022 Social Influencers of Health Screening 06/16/2022 COVID-19 Vaccine ( season) 2024 10/18/2020, 09/27/2020 Influenza Vaccine (#1) 2024 , 04/19/2020, 06/24/2017, Additional history exists Cervical Cancer Screening: Pap Smear 08/13/2027 08/13/2024 Cholesterol Screening (Lipid Panel) 02/01/2029 02/02/2024, 02/02/2024 Hepatitis C Screening Completed 03/15/2014 Hepatitis B Vaccines Completed 05/16/2015, 12/28/2014, 11/24/2014 MMR Vaccines Aged Out 05/10/2020, 11/24/2014 No lo nger eligible based on patient's age to complete this topic HIB Vaccines Aged Out No longer eligi ble based on patient's age to complete this topic HPV Vaccines Aged Out No longer eligi ble based on patient's age to complete this topic IPV Vaccines Aged Out No longer eligi ble based on patient's age to complete this topic Meningococcal ACWY Vaccine Aged Out N o longer eligible based on patient's age to complete this topic Meningococcal B Vacine Aged Out No lo nger eligible based on patient's age to complete this topic RSV Immunization Patients Under 20 months Aged Out No longer eligible based on patient's age to complete this topic Varicella Vaccines Aged Out No longer eligible based on patient's age to complete this topic Procedures Procedure Name Priority Date/Time Associated Diagnosis Comments CHLAMYDIA TRACHOMATIS AND NEISSERIA GONORRHOEAE BY TMA, THINPREP Routine 08/13/2024 12:00 AM EST Unspecified abnormal cytological findings in specimens from cervix uteri PAP SMEAR Routine 08/13/2024 12:00 AM EST Unspecified abnormal cytological findings in specimens from cervix uteri TISSUE EXAM Routine 08/13/2024 Abnormal uterine and vaginal bleeding, unspecified LIPID PANEL Routine 02/02/2024 SCR MAMMO BI INCL CAD Routine 08/01/2018 12:04 PM EST Encounter for screening mammogram for malignant neoplasm of breast HEPATITIS C SCREENING Routine 03/15/2014 from Last 3 Months or Most Recently Relevant to Health Maintenance Results * Chlamydia trachomatis and neisseria gonorrhoeae by tma, thinprep (08/13/2024 12:00 AM EST) N. gonorrhoeae, RNA Probe Negative Negative LAB MICROBIOLOGY METHOD 08/16/2024 12:43 PM EST [facility] Chlamydia, RNA Probe Negative Negative LAB MICROBIOLOGY METHOD 08/16/2024 12:43 PM EST [facility] Brushing/Spatula Cervix uteri structure / Unknown 08/13/2024 08/16/2024 6:42 AM EST us Abbi Meehan MD LAB CYTOLOGY ORDERABLES Final Result [facility] [address] [place] [address], [place] [phone] * Tissue Exam (08/13/2024) Final Diagnosis Endometrial biopsy: Proliferative endometrium No endometrial polyp, hyperplasia or neoplasm identified 08/16/2024 11:53 AM EST [facility] Clinical Information Endometrial biopsy DUB 08/16/2024 11:53 AM [facility] Gross Description A. Endometrium, biopsy: Labeled with the patient's name and information . Received in formalin is a 2.0 x 1.5 x 0.2 cm aggregate of soft to friable, slightly gray-red tissue fragments admixed mucoid material, which is wrapped in paper and submitted in entirety in one cassette, multiple pieces, x 2. TS 08/16/2024 11:53 AM [facility] Disclaimer Unless otherwise specified, all tissue is 10% NB formalin fixed and paraffin embedded. 08/16/2024 11:53 AM [facility] Tissue Endometrial structure / Unknown 08/13/2024 08/13/2024 12:51 PM EST Abbi Meehan MD LAB PATHOLOGY ORDERABLES Final Result [facility] [address] [place] [address], * Pap smear (08/13/2024 12:00 AM EST) Interpretation Negative for intraepithelial lesion or malignancy 08/17/2024 11:13 AM [facility] Clinical Information DUB 08/17/2024 11:13 AM [facility] Other Findings Shift in elisabet suggestive of bacterial vaginosis 08/17/2024 11:13 AM [facility] Specimen Adequacy Satisfactory for evaluation, endocervical/katz sformation zone component present 08/17/2024 11:13 AM [facility] Pap Methodology Liquid Based Pap Test 08/17/2024 11:13 AM [facility] Disclaimer The Pap test is a screening test which carries an inherent false negative rate. These test results should be correlated with the patient's clinical findings and history. This Pap test was processed using an automated screening system. Technical cytopathology services provided by [facility], at [address] [place] [address] (CLIA # [id number]/Grace Boggs MD, Mosaic Worker.) 08/17/2024 11:13 AM EST [facility] Console Pap Interpretation Reported 08/17/2024 11:13 AM EST [facility] Brushing/Spatula Cervix uteri structure / Unknown 08/13/2024 08/16/2024 6:42 AM EST Abbi Meehan MD LAB CYTOLOGY ORDERABLES Final Result [facility] [address] [place] [address], * (ABNORMAL) Lipid panel (02/02/2024) LDL/HDL Ratio 3 0 - 4 Triglycerides 179(A) 0 - 150 mg/dL Cholesterol 188 0 - 200 mg/dL HDL 62 >=40 mg/dL LDL Cholesterol 91 0 - 100 mg/dL Blood Venous blood specimen / Unknown [facility] Provider LAB BLOOD ORDERABLES Jenifer l Result * SCR MAMMO BI INCL CAD (08/01/2018 12:04 PM EST) Anatomical Region Laterality Modality Radiographic Grace ging 07/28/2017 8:00 AM EST Narrative 08/03/2018 11:37 AM EST This is a summary report. The complete report is available in the patient's medical record. If you cannot access the medical record, please contact the sending organization for a detailed fax or copy. Full field digital screening mammography, reviewed with CAD and compared to previous. ??The breasts are composed of fatty and fibroglandular tissue. ??No suspicious mass, architectural distortion or suspicious calcifications are identified. IMPRESSION: : No mammographic evidence of malignancy. BIRADS 1-Negative; N. 5 year breast cancer risk assessment 0.4 % Lifetime breast cancer risk assessment 5.5 % Breast cancer risk category Low (<15%) Procedure Note Irina Fontanez MD - 07/02/2022 This is a summary report. The complete report is available in thepatient's medical record. If you cannot access the medical record, pleasecontact the sending organization for a detailed fax or copy. Full field digital screening mammography, reviewed with CAD and comparedto previous. The breasts are composed of fatty and fibroglandular tissue.No suspicious mass, architectural distortion or suspicious calcificationsare identified. IMPRESSION: : No mammographic evidence of malignancy. BIRADS 1-Negative; N. 5 year breast cancer risk assessment 0.4 % Lifetime breast cancer risk assessment 5.5 % Breast cancer risk category Low (<15%) Jennifer WHITNEY IMG XR PROCEDURES Final Result * Hepatitis C Screening (03/15/2014) Hepatitis C Screening Abstracted Historical Provider HEALTH MAINTENANCE Final Result from Last 3 Months or Most Recently Relevant to Health Maintenance Insurance MEDICARE [facility] Care Teams Manager Client Relationship Specialty Start Date End Date Dagoberto Clement MD [address] [place] [address] PCP - General Internal Medicine 06/05/21
--- OUTSIDE RECORDS SUMMARY | 2024-09-29 09:12 | XMS_ITS | Encounter Summary ---
Author Organization [facility] Address [address] [place] [address] Care Team Providers Care Gas Leak Inspector Name Role Phone Dagoberto Clement MD Primary Care Provider [phone] Encounter Details Date Type Department Care Team (Late st Contact Info) Description 08/25/2024 Telephone Gastroenterology - [address] [place] [phone] Girish Arias MD [address] [place] [address] Social History Tobacco Use Types Packs/Day Years [...] as of this encounter Progress Notes * Jamie Millan - 09/01/2024 10:13 AM EST Slitsarah bethky pt booked from [facility] ref * Jc Farias MA - 08/25/2024 10:27 AM EST Medications and allergies updated. * Sydney Rowland - 08/25/2024 9:45 AM EST H&P RECEIVED FROM 'S OFFICE--PASSED TO [facility] FOR [facility] ALLERGY UPDATES. documented in this encounter Plan of Treatment Upcoming Encounters Date Type Department Care Team (Late st Contact Info) Description 09/29/2024 3:00 PM EDT Office Visit Adult [address] [phone] Rosalinda Hess PA [address] [place] [address] 04/01/2025 4:30 PM EDT Office Visit [address] [phone] Dagoberto Clement MD [address] [place] [address] documented as of this encounter Visit Diagnoses Not on filedocumented in this encounter Historical Medications * This list may reflect changes made after this encounter. traZODone (DESYREL) 50 mg tablet Take 1 tablet (50 mg total) by mouth. FLUoxetine (PROzac) 20 mg capsule Take 1 capsule (20 mg total) by mouth. added in this encounter Care Teams Gas Leak Inspector Relationship Specialty Start Date End Date Dagoberto Clement MD [address] [place] [address] PCP - General Internal Medicine 06/05/21 documented as of this encounter
--- OUTSIDE RECORDS SUMMARY | 2024-09-29 09:12 | XMS_ITS | Clinical Summary ---
Author Organization [facility] Address [address] [place] [address] Care Team Providers Care Garbage Collector Driver Name Role Phone KenjiFabien saldivar GABE Primary Care Provider [phone] Source Comments PLEASE NOTE, if this patient is a minor, it may be UNLAWFUL to discuss sensitive information that is contained in these records (such as FAMILY PLANNING, MENTAL HEALTH or SUBSTANCE ABUSE) with the minor patient's parent or other person without the patient's specific authorization.[facility] Social History Tobacco Use Types Packs/Day Years Used Date Smoking Tobacco: Never Assessed Comments Unknown Sex and Gender Information Value Date Recorded Sex Assigned at Not on file Legal Sex Female 8:29 AM PST Gender Identity Not on file Sexual Orientation Not on file Last Filed Vital Signs Vital Sign Reading Time Taken Comments Blood Pressure - - Pulse - - Temperature - - Respiratory Rate - - Oxygen Saturation - - Inhaled Oxygen Concentration - - Weight 87.1 kg (192 lb) 04/27/2014 11:58 AM EDT Height 149.9 cm (4' 11 ) 04/27/2014 11:58 AM EDT Body Mass Index 38.78 04/27/2014 11:58 AM EDT Plan of Treatment Not on file Insurance [place] [facility] [place] MEDICAID Care Teams Garbage Collector Driver Relationship Specialty Start Date End Date Fabien [address] [place] [address] PCP - General Nutrition 04/12/14
--- OUTSIDE RECORDS SUMMARY | 2024-09-29 09:12 | XMS_ITS | Encounter Summary ---
Author Organization [facility] Address [address] [place] [address] Care Team Providers Care Special Needs Librarian Name Role Phone Dagoberto Clement MD Primary Care Provider [phone] Encounter Details Date Type Department Care Team (Late st Contact Info) Description 08/13/2024 Lab Requisition [facility] - Main Lab [address] [facility] [place] [phone] Abbi Meehan MD [address] [facility] [address] [place] [phone] Abnormal uterine and vaginal bleeding, unspecified Social History Tobacco Use Types Packs/Day Years [...] 3:00 PM EDT Office Visit Adult Medicine [address] [phone] Rosalinda Hess PA [address] [place] [address] 04/01/2025 4:30 PM EDT Office Visit Adult Medicine [address] [phone] Dagoberto Clement MD [address] [place] [phone] documented as of this encounter Procedures Procedure Name Priority Date/Time Associated Diagnosis Comments TISSUE EXAM Routine 08/13/2024 Abnormal uterine and vaginal bleeding, unspecified documented in this encounter Results * Tissue Exam (08/13/2024) Final Diagnosis Endometrial biopsy: Proliferative endometrium No endometrial polyp, hyperplasia or neoplasm identified 08/16/2024 11:53 AM [facility] Clinical Information Endometrial biopsy DUB 08/16/2024 11:53 AM [facility] Gross Description A. Endometrium, biopsy: Labeled with the patient's name and information . Received in formalin is a 2.0 x 1.5 x 0.2 cm aggregate of soft to friable, slightly gray-red tissue fragments admixed mucoid material, which is wrapped in paper and submitted in entirety in one cassette, multiple pieces, x 2. TS 08/16/2024 11:53 AM [facility] Disclaimer Unless otherwise specified, all tissue is 10% NB formalin fixed and paraffin embedded. 08/16/2024 11:53 AM [facility] Tissue Endometrial structure / Unknown 08/13/2024 08/13/2024 12:51 PM EST us Abbi Meehan MD LAB PATHOLOGY ORDERABLES Final Result [facility] [address] [place] [address], documented in this encounter Visit Diagnoses Diagnosis Abnormal uterine and vaginal bleeding, unspecified documented in this encounter Care Teams Special Needs Librarian Relationship Specialty Start Date End Date Dagoberto Clement MD [address] [place] [phone] PCP - General Internal Medicine 06/05/21 documented as of this encounter
== END 2024-09-29 08:58 | disposition home or self-care (01) ==
LOC: HO.HPS 08:28
PROVIDERS: PCP Internal Medicine; Visit Provider Hospitalist
DX: G47.33 Obstructive sleep apnea (adult) (pediatric) (principal); J45.40 Moderate persistent asthma, uncomplicated; R91.1 Solitary pulmonary nodule; J30.9 Allergic rhinitis, unspecified; R05.3 Chronic cough
CPT/HCPCS: 99214

== ENCOUNTER → 2024-09-29 08:27 | Outpatient (BNVA) | payer OTHER, SELFPAY | PROVIDERS: PCP Internal Medicine; Visit Provider Hospitalist | DX: G47.33 Obstructive sleep apnea (adult) (pediatric) (principal); J45.40 Moderate persistent asthma, uncomplicated; R91.1 Solitary pulmonary nodule; J30.9 Allergic rhinitis, unspecified; R05.3 Chronic cough; Z23 Encounter for immunization | CPT/HCPCS: 90471; 90656 ==

== ENCOUNTER 2025-05-30 08:25 | Outpatient (AMB) | payer OTHER, SELFPAY ==
[2025-05-30 08:28] VITALS: BP 110/70; PULSE 92; O2SAT 97; BMI 38.7
--- NOTE | 2025-05-30 08:28 | MHC.OFFVIS ---
Vital Signs 05/30/25 08:28 Height 4 ft 11 in Weight 191 lb 12.835 oz BMI 38.7 BP 110/70 Blood Pressure Location Lt brachial Position Sitting Pulse 92 Pulse Source Pulse Oximeter Pulse Oximetry (%) 97 Oxygen Delivery Method Room Air Intake Visit Reasons: Pulmonary Nodules Extern Required: No Accompanied by: Self / Same As Patient Allergies No Known Allergies Allergy (Verified 05/30/25 08:34) HPI Comments Details: The patient is a 50-year-old woman with a known history of asthma in addition to pulmonary nodules. She has been developing chest discomfort and therefore she was referred to Cardiology. She did undergo a cardiac CT angiogram which demonstrated a small left upper lobe pulmonary nodule. The patient does have a history of pulmonary nodules noted previously on a report from a CT scan from [facility]. However, that nodule was ground-glass in nature. We did review the CT scan that she had recently at [facility] however explained to the patient that is very limited based on the fact that it is primarily focusing on the heart and is missing good amount the lung windows. Patient still describing the chest discomfort. The chest discomfort to some degree is reproducible. It is left-sided and is moderate severity. There is a pleuritic component to it. Also noted on the CT scan that she had recently was a dilated pulmonary trunk suggesting the possibility of pulmonary hypertension. The patient states that she has been having a difficult time sleeping. She does have significant snoring. Her Orrtanna score is elevated 12/24. The patient did have a sleep study in the past but was limited by cast insomnia. Based on the patient's cardiovascular risks and current symptoms of daytime drowsiness and headaches the patient will undergo a home sleep study. The patient will also undergo blood work including a D-dimer. The patient understands if her D-dimer is elevated she require a urgent CTA. 06/11/2022 the patient is here for pulmonary follow-up visit. She is having difficulty breathing. She is having increased cough. Chest congestion. She denies any fevers or chills. She did have a function studies this morning. They appear to show small airways disease consistent with her asthma. On examination she does have significant wheezing. She responded very well to the nebulized therapy with albuterol. It definitely helped her cough. She likely has cough variant asthma. The patient does need a nebulizer for home. In the meantime she continues to have daytime drowsiness. She does have severe headaches in the morning. She also has significant snoring and elevated cholesterol. She also had a mix sleep study which she was awake most of the time during the study. It is likely that her sleep apnea is much worse than stated on her sleep study. Therefore although she has mild sleep apnea on her sleep study I do believe is more close to [id number]. The patient does need to start CPAP therapy at this time. Will go ahead and treated for an asthma exacerbation as well. She did a pulmonary nodules noted on a CT scan a few months ago. Will go ahead and monitor her symptoms and monitor her response to CPAP. When she returns will talk about repeating the CT scan to address her pulmonary nodules. 09/13/2022 the patient is here for a pulmonary follow-up visit. Overall the patient has been doing very well from a respiratory status. She has been using her inhalers. With good response. She has not had to use her rescue inhaler. The patient also had a CT scan of the chest that we personally reviewed demonstrating a small calcified pulmonary nodule measuring 2 mm in size consistent with granuloma and therefore she does not need any further CT scans at this time. The rest of the scan was unremarkable. The patient did get her CPAP. She has been struggling with. Initially she was tolerating it and now she gets very anxious when she uses it and she panics and she has not been able to tolerated. Therefore she has been using some time. We did review her sleep study. She only demonstrated mild sleep apnea so therefore she can use try positional therapy at this time. She was aware that if she does not sleep on her back her symptoms do improve. Therefore she is going to continue positional therapy and if she does well did she can always return her CPAP to the [facility]. In addition to this will going to work on her sleep. She is struggling to sleep. She has tried gabapentin and also trazodone without any significant improvement. Sometimes she is up wake all night and she cannot get any sleep. Therefore I will send his Ambien to the pharmacy and she can use as needed. 04/19/2023 patient has a telehealth visit today. Overall she is doing a lot better. Her asthma seems to be better controlled on the Breo inhaler she has not had to use her rescue inhaler often. The skin twice a week. The last time she had chest tightness couple weeks ago she had to use her inhaler once in her movement was significant. The patient also is using the Ambien with good effect. She is sleeping a lot better. She does try did take medication holidays. She has not seen any significant worsening of any of needs a but she has had episodes that are not clear far from regular in nature or medication. Therefore she will monitor closely for any worsening symptoms. If she finds herself with worsening episodes of the needs of the patient. The Ambien call. Otherwise seems to be tolerating it well. She is not having any daytime drowsiness. Orrtanna score is improved down to 01/04. Therefore she does have to use her CPAP right now so long she is doing positional therapy. We also talked about a CT scan again no need for repeating the CT scan at this time. Therefore she will continue with current respiratory therapy and will follow-up sometime in late spring. If the patient has any worsening symptoms prior to this upcoming visit she can always call for an earlier assessment. 12/29/2023 the patient is here for pulmonary follow-up visit. Overall she has been doing well from a respiratory status. She has been using the Breo inhaler has been affecting beneficial. She does rinse her mouth well after using it. She has been complaining of a cough. Also some hoarseness. The cough tends to be worse when she lies flat. She also has noticed some constant clearing of her throat. The patient also also been concerned about her weight gain. She has been having hard time losing weight. She is getting discouraged and somewhat depressed 4. she is trying to get motivated to go exercise and also make some dietary changes. I do believe the dietitian be helpful in her lifestyle changes. I will go ahead and refer her at this time. I do believe that weight loss will also help her breathing. In addition to that her respiratory exam is reassuring although she does have significant nasal congestion and postnasal drip. Likely resulting in her symptoms. We did talk about nasal rinsing. I did provide her with the Neti bottle and she will get some distilled water for. She can use packets. She can use it at nighttime and then start fluticasone nasal spray during the morning. She can use it for the next 4 weeks and then if she is doing okay she can stop the nasal spray and continue the needed bottle sinus rinse as tolerated. Again, we talked about only using distilled water for. Also the bottom be discarded after few months. No recent imaging to review. Her last CT scan was reassuring. The patient will follow-up in 6-8 months. If she develops any worsening symptoms prior to that she will come for further evaluation. 09/29/2024 the patient is here for pulmonary follow-up visit. Overall she is doing okay. She does use her respiratory medications with good effect. She does complaint of dyspnea on exertion. [id number] severity. Worse when she is going up a flight of stairs. She has had significant amount of weight gain and this is likely contributing. She is also demonstrating some lower extremity edema. She has been noticing that the compression stockings on helping some. Apparently she does consume salt. We talked about the importance of cutting down the salt specially she starting to get significant volume overload status. She has not been using the Ambien regularly. I do believe that she needs a maintenance inhaler at this time. Will switch her over to air supra in order for her to get better airway coverage in an as needed basis. She continues use the Ambien for sleep. This has been affecting beneficial. She does take holidays. Denies any amnesia. Safe for her to continue it but she needs to monitor closely for those side effects. She also continues to sleep on her side. Positional therapy and also sleeping elevated at times to minimize the sleep apnea. She does wake up rested. 05/30/2025 the patient is here for pulmonary follow-up visit. Overall she is doing well from a respiratory status. Since we last spoke the patient did have a colonoscopy afterwards the patient has significant malaise. Ultimately went to the ER. She was found to have critical elevated blood sugars and she was diagnosed with type 2 diabetes. The patient is initially placed on insulin nauseous and a GLP 1 inhibitor. She has kept her blood sugars stable. The patient has lost weight. She denies any significant issues with the breathing. She has been okay without her CPAP and she has been waking up rested as long as she uses the Ambien. She has continue the positional therapy. Inhaler acharya the patient has not had to use her rescue inhaler. Overall in good standing. Will follow-up in the fall of 2025. If she has any issues prior to this she can always call for an earlier assessment recommendations. [facility] Medical History (Updated 12/29/23 @ 21:51 by Da Pardo MD) Chronic cough Chronic allergic rhinitis Vitamin D deficiency Hyperlipidemia Obesity Hematuria Migraines Depression with anxiety Insomnia PLMD (periodic limb movement disorder) (~2018) Personal history of nicotine dependence Pulmonary nodule Asthma Pleuritic chest pain EMILEE (obstructive sleep apnea) Surgical History (Updated 03/14/23 @ 10:55 by Frannie Briscoe PA-C) History of loop electrosurgical excision procedure (LEEP) History of esophagogastroduodenoscopy (EGD) History of colonoscopy Social History Patient Tobacco Use Status: Former Tobacco user Tobacco use type: Cigarette Years Smoked: 10 Years Review of Systems Const Denies daytime sleepiness, Reports difficulty sleeping and Denies headache(s) Eyes Denies change in vision and Denies itchy eyes ENT Denies change in voice, Denies headache(s) and Denies lip swelling Card Denies chest pain and Denies dyspnea on exertion Resp Denies chest congestion, Reports cough, Denies dyspnea on exertion and Denies wheezing GI Reports no additional complaints Musc Reports no additional complaints Skin/Breast Denies rash Neuro Denies headache(s) and Reports restless legs Endo Reports as per HPI Edmar/Lymph Denies easy bleeding and Denies easy bruising Aller/Immun Denies urticaria, Denies itchy eyes, Denies lip swelling and Denies wheezing Physical Exam Vital Signs: Last Vital Signs Pulse 92 05/30/25 08:28 BP 110/70 05/30/25 08:28 Pulse Ox 97 05/30/25 08:28 Oxygen Delivery Method Room Air 05/30/25 08:28 BMI result Body Mass Index 38.7 Const General: comfortable HEENT Head: Yes normal to inspection Eyes General: appearance normal, both eyes and all related structures Neck Neck: Yes supple Chest Chest palpation & inspection: normal inspection of the chest Resp Effort & Inspection: normal respiratory effort Auscultation: clear to auscultation bilaterally, no rhonchi and no wheezes Cardio Rate: regular rate Rhythm: regular rhythm Heart sounds: S1 normal heart sound present and S2 normal heart sound present GI Auscultation: normal bowel sounds General: Yes no CVA tenderness Back/Spine/Pelvis Back: no CVA tenderness Skin General skin exam: no rashes or lesions noted Extrem General: No clubbing, No cyanosis and Yes pedal edema Assessment & Plan Assessment & Plan (1) EMILEE (obstructive sleep apnea): Code(s): G47.33 - Obstructive sleep apnea (adult) (pediatric) Category: Medical (2) Asthma: Code(s): J45.909 - Unspecified asthma, uncomplicated Category: Medical Qualifiers: Asthma complication type: uncomplicated Asthma persistence: persistent Asthma severity: moderate Qualified Code(s): J45.40 - Moderate persistent asthma, uncomplicated (3) Pulmonary nodule: Comment: calcified granuloma Code(s): R91.1 - Solitary pulmonary nodule Category: Medical (4) Chronic allergic rhinitis: Code(s): J30.9 - Allergic rhinitis, unspecified Category: Medical (5) Chronic cough: Code(s): R05.3 - Chronic cough Category: Medical Plan continue Ambien for sleep, monitor for amnesia no APAP. continue positional therapy. nebulizer as needed Airsupra PRN LESLYE as needed neti bottle fluticasone nasal spray Weight management F/U 8-12 months Coding Level of Care Code Est Pt Level 4 (73165) Diagnoses EMILEE (obstructive sleep apnea) G47.33 Moderate persistent asthma without complication J45.40 Asthma complication type: uncomplicated Asthma persistence: persistent Asthma severity: moderate Pulmonary nodule R91.1 Chronic allergic rhinitis J30.9 Chronic cough R05.3 Time Spent (min) 16
== END 2025-05-30 09:06 | disposition home or self-care (01) ==
LOC: HO.HPS 08:26
PROVIDERS: PCP Internal Medicine; Visit Provider Hospitalist
DX: G47.33 Obstructive sleep apnea (adult) (pediatric) (principal); J45.40 Moderate persistent asthma, uncomplicated; R91.1 Solitary pulmonary nodule; J30.9 Allergic rhinitis, unspecified; R05.3 Chronic cough
CPT/HCPCS: 99214